=== PATIENT | male | born 1975 | race Caucasian/White ===

== ENCOUNTER 2017-11-12 15:19 | Emergency (ER) | payer BC ==
[2017-11-12] MEDS ORDERED: HYDROCODONE/ACETAMINOPHEN 5-325 MG TABLET PO ONE (16:10)
--- NOTE | 2017-11-12 16:16 | ER Document Report ---
ED Medical Screen (RME) - General Chief Complaint: Laceration Stated Complaint: HAND LACERATION Time Seen by Provider: 11/12/17 16:07 TRAVEL OUTSIDE OF THE [place] IN LAST 30 DAYS: No - HPI Notes: 11/12/17 16:15 Right hand laceration with possible tendon involvement. - Related Data Allergies/Adverse Reactions: No Known Allergies Allergy (Unverified 11/12/17 15:24) Past Medical History - Social History Chew tobacco use (# tins/day): No Frequency of alcohol use: None Drug Abuse: None Endocrine Medical History: Reports: Hx Diabetes Mellitus Type 1 Renal/ Medical History: Denies: Hx Peritoneal Dialysis Review of Systems - Review of Systems Constitutional: Other - hAnd laceration Physical Exam - Vital signs Vitals: Temp Pulse BP Pulse Ox 98.1 F 80 141/90 H 99 11/12/17 15:23 11/12/17 15:23 11/12/17 15:23 11/12/17 15:23 - Respiratory Respiratory status: No respiratory distress Chest status: Nontender Breath sounds: Normal Chest palpation: Normal Course - Vital Signs Vital signs: Temp Pulse Resp BP Pulse Ox 98.1 F 80 141/90 H 99 11/12/17 15:23 11/12/17 15:23 11/12/17 15:23 11/12/17 15:23
[2017-11-12] MEDS ORDERED: LIDOCAINE 1% INJ-PF (10 MG/ML) 30 ML SDV INJ ONE (16:20)
[2017-11-12] MEDS ORDERED: OXYCODONE HCL IR 5 MG TABLET PO ONE (16:21)
--- NOTE | 2017-11-12 16:46 | RADIOLOGY REPORT (SQ) ---
EXAM DESCRIPTION: HAND RIGHT 3 VIEWS COMPLETED DATE/TIME: 11/12/2017 4:37 pm REASON FOR STUDY: lac eval foreign body COMPARISON: None. EXAM PARAMETERS: NUMBER OF VIEWS: Three views. TECHNIQUE: AP, lateral and oblique radiographic images acquired of the right hand. LIMITATIONS: None. FINDINGS: MINERALIZATION: Normal. BONES: No acute fracture or dislocation. No worrisome bone lesions. JOINTS: No effusions. SOFT TISSUES: Multiple small radiopaque foreign bodies are seen in soft tissues of the volar aspect o f the proximal thumb. OTHER: No other significant finding. IMPRESSION: Foreign bodies in the soft tissues. No osseous abnormality. TECHNICAL DOCUMENTATION: JOB ID: [id number] [employer]- All Rights Reserved Reading location - IP/workstation name: [email or web address]
[2017-11-12] MEDS ORDERED: BUPIVACAINE HCL 0.5 % INJ/PF 30 ML SDV INJ ONE (16:57)
--- NOTE | 2017-11-12 18:22 | RADIOLOGY REPORT (SQ) ---
EXAM DESCRIPTION: HAND RIGHT 3 VIEWS COMPLETED DATE/TIME: 11/12/2017 5:57 pm REASON FOR STUDY: post wash out COMPARISON: None. EXAM PARAMETERS: NUMBER OF VIEWS: Three views. TECHNIQUE: AP, lateral and oblique radiographic images acquired of the right hand. LIMITATIONS: None. FINDINGS: MINERALIZATION: Normal. BONES: No acute fracture or dislocation. No worrisome bone lesions. JOINTS: No effusions. SOFT TISSUES: Residual small radiopaque foreign bodies are present in the proximal thumb. OTHER: No other significant finding. IMPRESSION: Multiple small foreign bodies remain in the soft tissues of proximal thumb. TECHNICAL DOCUMENTATION: JOB ID: [id number] [employer]- All Rights Reserved Reading location - IP/workstation name: [email or web address]
[2017-11-12] MEDS ORDERED: CEPHALEXIN 500 MG CAPSULE PO ONE (19:14)
--- NOTE | 2017-11-12 19:22 | ER Document Report ---
ED Wound - General Chief Complaint: Laceration Stated Complaint: HAND LACERATION Time Seen by Provider: 11/12/17 16:07 Mode of Arrival: Ambulatory Information source: Patient Notes: Patient with multiple lacerations to his right hand after he was helping install some sheet metal on the house. Patient reports that his tetanus is up to date. TRAVEL OUTSIDE OF THE [place] IN LAST 30 DAYS: No - Related Data Allergies/Adverse Reactions: No Known Allergies Allergy (Unverified 11/12/17 15:24) Past Medical History - General Information source: Patient - Social History Smoking Status: Current Every Day Smoker Chew tobacco use (# tins/day): No Frequency of alcohol use: None Drug Abuse: None Family History: Reviewed & Not Pertinent Patient has suicidal ideation: No Patient has homicidal ideation: No Endocrine Medical History: Reports: Hx Diabetes Mellitus Type 2 Renal/ Medical History: Denies: Hx Peritoneal Dialysis Review of Systems - Review of Systems Constitutional: No symptoms reported EENT: No symptoms reported Cardiovascular: No symptoms reported Respiratory: No symptoms reported Gastrointestinal: No symptoms reported Genitourinary: No symptoms reported Male Genitourinary: No symptoms reported Musculoskeletal: See HPI Skin: See HPI Hematologic/Lymphatic: No symptoms reported Neurological/Psychological: No symptoms reported Physical Exam - Vital signs Vitals: Temp Pulse BP Pulse Ox 98.1 F 80 141/90 H 99 11/12/17 15:23 11/12/17 15:23 11/12/17 15:23 11/12/17 15:23 - Notes Notes: PHYSICAL EXAMINATION: GENERAL: Well-appearing, well-nourished and in no acute distress. HEAD: Atraumatic, normocephalic. EYES: Pupils equal round extraocular movements intact, conjunctiva are normal. NECK: Normal range of motion LUNGS: No respiratory distress, lung sounds clear to auscultation bilaterally. Musculoskeletal: Normal range of motion NEUROLOGICAL: Normal speech, normal gait. PSYCH: Normal mood, normal affect. SKIN: 4 cm deep laceration to the right thumb on the palmar surface, limited range of motion, probable flexor tendon involvement. 2 cm laceration to the right third digit, normal range of motion, normal capillary refill, normal motor and sensation. Course - Re-evaluation Re-evalutation: Patient was initially seen by triage provider who ordered x-rays. There is debris noted to the wound particularly of the right thumb on x-ray. Tdap updated. Digital block was performed with Marcaine. Irrigated both lacerations to the right hand with approximately 1200 mL's of normal saline. Patient was sent back for repeat x-ray and radiopaque foreign body/debris is still noted. I will call and consult orthopedics for further direction. 11/12/17 1840 Spoke with on-call orthopedics Dr. Owen who recommends approximating the wound loosely with sutures, placing on antibiotics, splint and send to see Dr. Gaffney first thing in the morning. Laceration repair performed, patient and are up-to-date on plan of care they are agreeable to same, they will call orthopedics in the morning to schedule a follow-up. - Vital Signs Vital signs: Temp Pulse Resp BP Pulse Ox 97.7 F 55 L 16 121/84 100 11/12/17 19:28 11/12/17 19:28 11/12/17 19:28 11/12/17 19:28 11/12/17 19:28 Procedures - Laceration/Wound Repair Right thumb Wound length (cm): 4 Wound's Depth, Shape: Irregular, Flap Laceration pre-procedure: Sterile PPE donned Anesthetic type: 0.25% Bupivacaine Volume Anesthetic (mLs): 10 Wound explored: Contaminated Irrigated w/ Saline (mLs): 800 Wound Repaired With: Sutures Suture Size/Type: 4:0, Nylon Number of Sutures: 5 Layer Closure?: No Hands front picture: 1 - 2 cm laceration. 2 - 4 cm irregular laceration. Discharge - Discharge Clinical Impression: Laceration Condition: Stable Disposition: HOME, SELF-CARE Additional Instructions: You have lacerated your finger today on a dirty item, there is debris in the wound despite attempting to remove it. There is also likely tendon involvement to the thumb laceration. This is why it is very important that you follow-up with orthopedics first thing tomorrow. Laceration Care Your laceration has been sutured to keep the skin edges aligned during healing. The time of suture removal depends on the nature and location of your cut. Please follow the care instructions the doctor has outlined for you and return for further care, according to the schedule you've been given. Keep the wound and dressing clean. Unless you were told otherwise, you may shower daily, blotting the wound dry with a clean, unused towel. At other times, If the dressing gets wet or blood soaked, remove it and blot the wound dry, then reapply a new dressing. Unless you were instructed otherwise, dressings should be changed at least daily. If any signs of infection occur (swelling, redness, increasing tenderness, red streaks, tender lumps in the armpit or groin above the laceration, or fever) , see the doctor immediately. Please present to the orthopedic office first thing tomorrow morning. You can call them ahead of time. Please take the antibiotics as directed. Please take ibuprofen 600 mg every 6 hours for the next several days. Please use the narcotic pain medication for severe pain. The digital block that I placed will likely wear off after 6 hours. It is very important to elevate the extremity above the level of your heart. Please return earlier if you develop any signs of infection such as increased redness, swelling, foul-smelling drainage or fever. Prescriptions: Cephalexin Monohydrate [Keflex 500 mg Capsule] 500 mg PO Q6H 5 Days #20 capsule Oxycodone HCl/Acetaminophen [Percocet 5-325 mg Tablet] 1 - 2 tab PO Q4H PRN #12 tablet PRN Reason: Referrals: JENNIFER GAFFNEY DO [ACTIVE STAFF] - Follow up as needed
[2017-11-12 19:32] VITALS: BP 121/84
== END 2017-11-12 19:31 | disposition home or self-care (01) ==
LOC: ER 15:19
DX: S61.021A Laceration with foreign body of right thumb without damage to nail, initial encounter (principal); S61.212A Laceration without foreign body of right middle finger without damage to nail, initial encounter; W45.8XXA Other foreign body or object entering through skin, initial encounter; Y93.H3 Activity, building and construction; Y92.009 Unspecified place in unspecified non-institutional (private) residence as the place of occurrence of the external cause; E11.9 Type 2 diabetes mellitus without complications; F17.200 Nicotine dependence, unspecified, uncomplicated; Z23 Encounter for immunization
CPT/HCPCS: 99283; 73130; 12002; J3490 ×2